=== PATIENT | female | born 1980 | race Two or more races ===

== ENCOUNTER → 2021-01-01 | Outpatient (CLI) | payer MEDICAID ==
[2015-06-19 13:15] VITALS: BP 108/67
[~2021-01-01] MED LIST: METF10007 PO
--- NOTE | 2021-01-01 15:57 | RAD ---
INDICATION: Reason: Bilateral Leg Swelling; Post 12-14-20 / Spl. Instructions: / History: COMPARISON: None. TECHNIQUE: Grayscale, color and doppler ultrasound images were obtained of the bilateral lower extrem ity venous vasculature. RIGHT: No thrombus identified in the common femoral vein, femoral vein, popliteal vein or visualized calf ve ins. LEFT: No thrombus identified in the common femoral vein, femoral vein, popliteal vein or visualized calf ve ins. IMPRESSION: * No thrombus identified in deep venous system of bilateral lower extremities. Electronically signed by: Alonso Maier MD (01/01/2021 3:55 PM) [id number]
== END ==
LOC: US 15:03
PROVIDERS: ATTEND Obstetrics & Gynecology
DX: R22.43 Localized swelling, mass and lump, lower limb, bilateral (principal)
CPT/HCPCS: 93970